=== PATIENT | female | born 1985 | race Native Hawaiian/Other Pacific Islander ===

== ENCOUNTER 2017-12-28 10:28 | Emergency (ER) | payer OTHER ==
[2017-12-28] MEDS: DERMABOND TOPICAL SKIN ADHESIVE TOP (10:57)
[2017-12-28] MEDS: ADACEL/BOOSTRIX VACCINE (DIPHTH/PERTUSS/ACELL/TETANUS)0.5ML SYR (90715) IM (10:57)
== END 2017-12-28 11:18 | disposition home or self-care (01) ==
LOC: M ED 10:28
DX: S61.217A Laceration without foreign body of left little finger without damage to nail, initial encounter (principal); W26.8XXA Contact with other sharp object(s), not elsewhere classified, initial encounter; Y92.9 Unspecified place or not applicable; Y93.9 Activity, unspecified; Y99.0 Civilian activity done for income or pay; G43.909 Migraine, unspecified, not intractable, without status migrainosus
CPT/HCPCS: 90715